=== PATIENT | male | born 2005 | race Caucasian/White ===

== ENCOUNTER 2024-06-14 13:58 | Emergency (ER) | payer SELFPAY ==
--- NOTE | 2024-06-14 14:04 | ECG_ITS ---
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
[2024-06-14 14:09] VITALS: BP 153/86; PULSE 58; RESP 14; TEMP 36.5; O2SAT 99; BMI 20.2
--- NOTE | 2024-06-14 14:09 | XR_ITS ---
WS: [id number] XR chest 1V portable [id number] REASON FOR EXAM: chest pain FINDINGS: The heart and the mediastinum are within normal limits. Calcified granulomas disease bilaterally. No acute pulmonary parenchymal or pleural abnormality. No significant abnormality of the bony thorax. XR/XR chest 1V portable [id number] IMPRESSION: No significant abnormality.
--- NOTE | 2024-06-14 14:10 | W.ED.ARRPALP ---
HPI - Arrhythmia/Palpitations General: Chief Complaint: Chest Pain Stated Complaint: Rapid hr, abnormal feeling Time Seen by Provider: 06/14/24 14:02 Source: patient Mode of arrival: ambulatory Limitations: no limitations History of Present Illness: Patient is a 18-year-old male presents to ED today with a complaint of a sensation of a rapid heart rate. Patient states he first noticed an episode lasting 5 to 10 minutes on Tuesday (3 days ago). He felt a little lightheaded with it. He states he did not eat or drink much throughout the entire day so attributed symptoms to that. He states throughout Tuesday and Tuesday he may have had a few more episodes but is not sure. He denies any further episodes of lightheadedness, dizziness, presyncopal or syncopal episodes. He is not having any pain in his chest. No recent surgeries. He denies drug use. He does smoke marijuana and vapes. Drinks caffeine in the form of sweet tea. No energy drink use. No family history of sudden cardiac . No recent illness. Patient states upon arrival to the emergency department he is pretty well asymptomatic. He does feel like he can see his heart beating on his chest. No exertional symptoms. Denies feelings of palpitations or that his heart is skipping beats. MD complaint: heart racing Onset (ago): day(s) Duration: intermittent Severity: mild Context: occurred during rest Associated symptoms: Reports anxiety; Deny nausea, pre-syncope, syncope or vomiting Related Data Allergies Allergy/AdvReac Type Severity Reaction Status Date / Time No Known Allergies Allergy Verified 06/14/24 14:11 Review of Systems Const: Denies: fever(s), chills, body aches, fatigue or malaise Card: Denies: chest pain, palpitations, edema, swelling of feet/ankles, syncope, pre-syncope, dyspnea on exertion, orthopnea, leg pain with exertion or acrocyanosis Resp: Denies: dyspnea, productive cough, non-productive cough, wheezing, pain on inspiration, hemoptysis or chest congestion GI: Denies: abdominal pain, nausea or vomiting : Denies: flank pain Musc: Denies: neck pain or back pain Neuro: Denies: headache(s) or dizziness Psych: Reports: anxiety Physical Exam Const: COMMON NORMALS: no acute distress, average body habitus, patient oriented x3, no limitations, healthy appearing, alert and well nourished GENERAL APPEARANCE: cooperative ORIENTATION/CONSCIOUSNESS: Yes awake, Yes oriented to person, Yes oriented to place and Yes oriented to time Neck/C-Spine: COMMON NORMALS: full ROM, no lymphadenopathy and no JVD Chest: COMMONS NORMALS: normal inspection of the chest and normal palpation of entire chest wall Resp: COMMON NORMALS: normal respiratory effort and clear to auscultation bilaterally AUSCULTATION: clear to auscultation bilaterally Cardio: COMMON NORMALS: no JVD, regular rhythm and Peripheral pulses 2+ throughout RATE: bradycardic (mild 58; likely physiologic-pt is young, healthy, active appearing) RHYTHM: regular rhythm PERIPHERAL PULSES: Peripheral pulses 2+ throughout GI: COMMON NORMALS: Normal to inspection, nondistended, normoactive bowel sounds present, Soft to palpation, non-tender and no masses PALPATION: Yes Soft to palpation : COMMON NORMALS: Yes no CVA tenderness BLADDER/KIDNEY EXAM: Yes no CVA tenderness Back/Pelvis: COMMON NORMALS: no CVA tenderness and thoracic and lumbar spine normal to inspection Extremity: GENERAL: Yes normal exam except as noted Neuro: COMMON NORMALS: patient oriented x3, moves all extremities, no focal motor deficits and no sensory deficits noted SENSORIUM/ORIENTATION: Yes alert, Yes oriented to person, Yes oriented to place and Yes oriented to time Skin: COMMON NORMALS: no rashes or lesions noted GENERAL SKIN EXAM: no rashes or lesions noted Course Vital Signs: Vital signs: Vital Signs Temperature 97.7 F 06/14/24 14:09 Pulse Rate 53 L 06/14/24 14:22 Respiratory Rate 18 06/14/24 14:22 Blood Pressure 153/86 06/14/24 14:22 Pulse Oximetry 98 06/14/24 14:22 Oxygen Delivery Me thod Room Air 06/14/24 14:09 MDM - Arrhythmia/Palpitations Medical Decision Making Patient clinically appears in no acute distress. His vital signs are unremarkable. His workup today including labs, baseline troponin, EKG (reviewed by Dr. Gonzalez), and CXR are unremarkable. Patient will be allowed discharge from the emergency department. Will have case management set him up with a primary care provider for further evaluation. Return to ED precautions discussed. Differential Diagnosis Likely palpitations, anxiety, sinus tachycardia, ventricular premature beats and supraventricular tachycardia Medical Records I reviewed the patient's medical records. Lab Data I reviewed the patient's lab results. 06/14/24 14:17 06/14/24 14:17 Radiology Impressions Chest X-Ray 06/14/24 14:09 IMPRESSION: No significant abnormality. Laboratory Results WBC 7.53 10^3/uL (4.5-13.0) 06/14/24 14:17 RBC 5.10 10^6/uL (3.85-5.65) 06/14/24 14:17 Hgb 15.30 g/dL (13.2-15.6) 06/14/24 14:17 Hct 43.6 % (37-53) 06/14/24 14:17 MCV 85.5 fl (82-101) 06/14/24 14:17 MCH 30.0 pg (27-33) 06/14/24 14:17 MCHC 35.1 g/dL (30-55) 06/14/24 14:17 RDW 11.7 % (12.1-15.1) L 06/14/24 14:17 Plt Count 250 10^3/cmm (157-399) 06/14/24 14:17 MPV 10.0 fL (7.4-10.4) 06/14/24 14:17 Neut % (Auto) 65.1 % 06/14/24 14:17 Lymph % (Auto) 23.4 % 06/14/24 14:17 Walker % (Auto) 9.4 % 06/14/24 14:17 Eos % (Auto) 1.3 % 06/14/24 14:17 Baso % (Auto) 0.5 % 06/14/24 14:17 Neut # (Auto) 4.90 10^3/uL (1.8-8.0) 06/14/24 14:17 Lymph # (Auto) 1.8 10^3/uL (1.5-6.5) 06/14/24 14:17 Walker # (Auto) 0.7 10^3/uL (0.2-0.9) 06/14/24 14:17 Eos # (Auto) 0.1 10^3/uL (0.0-0.8) 06/14/24 14:17 Baso # (Auto) 0.0 10^3/uL (0.0-0.1) 06/14/24 14:17 Nucleated RBC % (auto) 0 % 06/14/24 14:17 Nucleated RBCs # 0.0 /100WBC 06/14/24 14:17 Sodium 136 mmol/L (136-145) 06/14/24 14:17 Potassium 4.0 mmol/L (3.5-5.1) 06/14/24 14:17 Chloride 97 mmol/L (98-107) L 06/14/24 14:17 Carbon Dioxide 27 mmol/L (22-29) 06/14/24 14:17 Anion Gap 16.0 (5-19) 06/14/24 14:17 BUN 15 mg/dL (6-20) 06/14/24 14:17 Creatinine 0.9 mg/dL (0.7-1.2) 06/14/24 14:17 GFR Calculation 107.6 mL/min (90-130) 06/14/24 14:17 Glucose 107 mg/dL (65-115) 06/14/24 14:17 Calculated Osmolality 283 mOsm/kg (285-295) L 06/14/24 14:17 Calcium 9.9 mg/dL (8.5-10.5) 06/14/24 14:17 Total Bilirubin 0.6 mg/dL (0.15-1.2) 06/14/24 14:17 AST 17 U/L (0-40) 06/14/24 14:17 ALT 7 U/L (0-41) 06/14/24 14:17 Alkaline Phosphatase 124 U/L (40-130) 06/14/24 14:17 Troponin T Baseline < 6 ng/L (0-15) 06/14/24 14:17 Total Protein 7.4 g/dL (6.6-8.7) 06/14/24 14:17 Albumin 5.0 g/dL (3.5-5.2) 06/14/24 14:17 Globulin 2.4 g/dL (1.3-4.6) 06/14/24 14:17 TSH 1.18 uIU/mL (0.27-4.20) 06/14/24 14:17 All radiology interpretation(s) finalized by discharge Discharge Plan Discharge Patient Disposition: Home Clinical Impression: Racing heart beat Condition: Stable Discharge Orders: Discharge ED (Routine); Ordered 06/14/24 Ordered By: Staci Monzon Activity Restrictions/Additional Instructions: As we discussed, your emergency evaluation here was unremarkable. I will have case management set you up with a primary care provider for further evaluation. You need to return to the emergency department for onset of severe chest pain, shortness of breath, difficulty breathing, lightheadedness/passing out episodes, or any other concerns you may have. Coding Level of Care Code ED Can Filling And Closing Machine Tender for Adalberto Zabala
[2024-06-14 14:22] VITALS: BP 153/86; PULSE 53; RESP 18; O2SAT 98
[2024-06-14 14:32] LABS: Basophils % 0.5 %; Eosinophils # 0.1 10^3/uL (0.0-0.8); Eosinophils % 1.3 %; Hematocrit 43.6 % (37-53); Lymphocytes # 1.8 10^3/uL (1.5-6.5); Lymphocytes % 23.4 %; Mean Corpuscular HGB Conc 35.1 g/dL (30-55); Mean Corpuscular Volume 85.5 fl (82-101); Monocytes # 0.7 10^3/uL (0.2-0.9); Monocytes % 9.4 %; Neutrophils % 65.1 %; Nucleated Red Blood Cells % 0 %; Platelet Count 250 10^3/cmm (157-399); Red Cell Distribution Width 11.7 % (12.1-15.1); White Blood Count 7.53 10^3/uL (4.5-13.0)
[2024-06-14 14:45] LABS: Troponin(5th) Baseline < 6 ng/L (0-15)
[2024-06-14 14:55] LABS: Alanine Aminotransferase 7 U/L (0-41); Alkaline Phosphatase 124 U/L (40-130); Aspartate Amino Transferase 17 U/L (0-40); Blood Urea Nitrogen 15 mg/dL (6-20); Calcium 9.9 mg/dL (8.5-10.5); Carbon Dioxide 27 mmol/L (22-29); Chloride 97 mmol/L (98-107); Creatinine Clr Calc Pharmacy 132.3859; Globulin 2.4 g/dL (1.3-4.6); Glomerular Filtration Rate 107.6 mL/min (90-130); Glucose 107 mg/dL (65-115); Osmolality Calculated 283 mOsm/kg (285-295); Sodium 136 mmol/L (136-145); Thyroid Stimulating Hormone 1.18 uIU/mL (0.27-4.20); Total Bilirubin 0.6 mg/dL (0.15-1.2); Total Protein 7.4 g/dL (6.6-8.7)
--- NOTE | 2024-06-14 15:25 | PC.PHAR ---
Patient states he doesn't take medicaion .He states he does smoke pot and vapes.
[2024-06-14 15:26] VITALS: BP 155/81; PULSE 56; RESP 18; O2SAT 98
--- NOTE | 2024-06-19 08:24 | DCPLANNER ---
Message sent to clinic to establish PCP
== END 2024-06-14 15:28 | disposition home or self-care (01) ==
PROVIDERS: Emergency Provider Physician Assistant
DX: R00.0 Tachycardia, unspecified (principal)
CPT/HCPCS: 71045; 80053; 84443; 84484; 85025; 93005; 99285